=== PATIENT | male | born 2005 | race Caucasian/White ===

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

== ENCOUNTER 2025-06-07 16:52 | Emergency (ER) | payer OTHER, SELFPAY ==
--- NOTE | ~2025-06-07 | XR_ITS ---
EXAMINATION: XR KNEE, LEFT CLINICAL INFORMATION: twisted knee COMPARISON: None available. TECHNIQUE: Four views of the left knee. FINDINGS: Joint spaces are preserved. There are no osteophytes. There is no joint effusion. There is no abnormal soft tissue calcification. No fracture line is apparent. XR/XR knee LT 4V IMPRESSION: Unremarkable left knee x-ray Electronically signed by: Diego Brown MD 06/07/2025 05:20 PM [facility]
[2025-06-07 16:58] VITALS: BP 147/63; PULSE 94; RESP 18; TEMP 36.3; O2SAT 96; BMI 23.4
--- NOTE | 2025-06-07 17:03 | ED_ITS ---
HPI - General Adult General Chief complaint: Extremity Injury, Lower Stated complaint: Work related injury: Knee Time Seen by Provider: 06/07/25 17:39 Source: patient Mode of arrival: ambulatory Limitations: no limitations History of Present Illness ED Provider: Elsie Crowe PA-C HPI narrative: Patient is a 19 year old male with no reported medical history presenting to the emergency department today with left knee pain. 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 Patient states that as time has gone on the pain has gotten better but it continues to be painful. Patient denies any other complaints at this time. Related Data Allergies Allergy/AdvReac Type Severity Reaction Status Date / Time No Known Allergies Allergy Verified 06/07/25 16:59 Review of Systems Constitutional: Constitutional: Reports as per HPI Eyes: Eyes: Reports as per HPI ENT: Reports as per HPI Cardiovascular: Cardiovascular: Reports as per HPI Respiratory: Respiratory: Reports as per HPI Gastrointestinal: Gastrointestinal: Reports as per HPI Genitourinary: Genitourinary: Reports as per HPI Musculoskeletal: Musculoskeletal: Reports as per HPI Integumentary/Breasts: Skin/Breast: Reports as per HPI Neurologic: Reports as per HPI Psychiatric: Psychiatric: Reports as per HPI Endocrine: Endocrine: Reports as per HPI Hematologic/Lymphatic: Hematologic/Lymphatic: Reports as per HPI Allergic/Immunologic: Allergic/Immunologic: Reports as per HPI [facility] Past Medical History Attestation statement: The following information was validated with the patient. Source: old records reviewed and nursing notes reviewed Social History Social History Advance Directives: No Advance Directives Information Provided: Yes Physical Exam ED Vital Signs: Vital Signs - 24 hr 06/07/25 16:58 06/07/25 18:44 Temperature 97.3 F 97.3 F Pulse Rate 94 94 Respiratory Rate 18 18 Blood Pressure 147/63 H 147/63 H Pulse Oximetry 96 96 Oxygen Delivery Method Room Air Room Air BMI result Body Mass Index 23.4 Const General: cooperative, no acute distress, alert and awake Nutritional Appearance: well nourished Orientation/consciousness: patient oriented x3 HENMT Head: Yes normal to inspection and Yes atraumatic Ears: hearing grossly normal bilaterally and external ears normal General nose exam: Normal external nose present, no nasal discharge noted and no epistaxis Face and sinus: Yes normal facial exam, No abrasion and No laceration Mouth: Normal oral and palatal mucosa present, no drooling and no muffled voice Eyes General: appearance normal, both eyes and all related structures Periorbital: periorbital findings normal Eyelids: Yes eyelids normal Conjunctivae: conjunctivae normal Pupils: Equal, round and reactive pupils present EOM: EOMs intact bilaterally Neck Neck: Yes normal visual inspection and Yes full ROM Resp Effort & Inspection: normal respiratory effort and able to speak in complete sentences Neuro General: patient oriented x3, moves all extremities and CN's II-XI intact bilaterally Cranial nerves: Yes Equal, round and reactive pupils present Cognition (Neuro): normal cognition Extrem General: Yes normal to inspection, Yes full ROM and Yes capillary refill normal Psych Appearance: grossly normal Mental Status: mental status grossly normal Affect: normal affect Attitude: cooperative Thought process: Normal thought process present Thought content: Normal thought content present Insight: Good insight present (Psych) Course Course Course Narrative: Rapid medical examination performed in triage by Elsie Crowe PA-C: Patient is a 19 year old assigned male at presenting to the emergency department with left knee pain. 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 Patient states that as time has gone on today the pain has improved. Detailed physical exam and review of systems are deferred to the employment law specialist. Imaging ordered. Patient placed back in the waiting room pending room availability and results. Procedures Orthopedic Splinting/Casting L knee sprain: Side: left Lower Extremity Injury Location: knee Lower Extremity Immobilizer: knee immobilizer (hinge brace) Medical Decision Making Medical Decision Making MDM Narrative: Patient is a 19 year old male with no reported medical history presenting to the emergency department today with left knee pain. Patient's physical exam was as noted in the physical exam portion of this note. Patient was able to ambulate on his left lower extremity without incident Patient's left knee x-ray showed no acute process. Patient's clinical presentation is most consistent with a left knee sprain. I explained my physical exam findings as well as all test results to the patient. I answered all questions asked by the patient. Patient's left knee was placed in a knee hinge brace - without incident. Patient's PMS was intact prior to and after hinge brace placement. I stressed the importance of the patient taking his medication as directed (either prescribed or as the over the counter packaging recommends). I stressed the importance of the patient following up with his primary care provider, orthopedic team, and the work connection team. I stressed the importance of the patient returning to the emergency department immediately if his symptoms were to worsen or if he were to develop any dizziness, shortness of breath, difficulty breathing, chest pain, blurry vision, loss of vision, nausea, vomiting, abdominal pain, fever, chills, back pain, or any other complaints. Patient verbalized agreement and understanding with this treatment plan and discharge. Differential Diagnosis Differential Diagnoses: The differential diagnosis associated with the presentation includes Left knee sprain Left knee strain Admission/Observation Consideration of admission/observation: Escalation of care including admission/observation considered Patient would have been admitted to the hospital had his work up had any findings where hospital admission was appropriate and his clinical presentation warranted hospital admission. Independent Interpretation I performed an independent interpretation of an: Plain X-Ray Interpretation: My interpretation is in agreement with the radiologist's impression of this imaging study as written below. EXAMINATION: XR KNEE, LEFT CLINICAL INFORMATION: twisted knee COMPARISON: None available. TECHNIQUE: Four views of the left knee. FINDINGS: Joint spaces are preserved. There are no osteophytes. There is no joint effusion. There is no abnormal soft tissue calcification. No fracture line is apparent. XR/XR knee LT 4V IMPRESSION: Unremarkable left knee x-ray Electronically signed by: Diego Brown MD 06/07/2025 05:20 PM [facility] Dictated By: Diego Brown MD Signed By: Electronically signed by Diego Brown MD 06/07/25 2190 Radiology Impression Discussion of test interpretation with radiology: I have reviewed the radiologist's reading. Discharge Plan Discharge Clinical Impression: Knee sprain Qualifiers: Encounter type: initial encounter Involved ligament of knee: unspecified ligament Laterality: left Qualified Code(s): S83.92XA - Sprain of unspecified site of left knee, initial encounter Patient Disposition: Home, Self-Care Instructions: Knee Sprain (DC) Additional Instructions: Your x-ray was reassuring there is no iban abnormality. I believe you have sprained your knee. Please wear the knee immobilizer brace for 24 to 48 hours. Allow your knee to rest and after 48 hours you can work on gentle range of motion testing of the knee but stop when you have pain. Follow up with the orthopedic team. Given this was a work place injury - you should follow up with the work connection team. IF you are prescribed home medications and/or you are taking over the counter medications at home - it is very important you continue to do so as prescribed / directed unless told otherwise by a healthcare provider. Follow up with your primary care provider. Do your best to stay well hydrated and rest. Return to the emergency department immediately if your symptoms worsen or if you develop any numbness, tingling, dizziness, shortness of breath, difficulty breathing, chest pain, blurry vision, loss of vision, nausea, vomiting, abdominal pain, fever, chills, back pain, or any other complaints. If you do not have a primary care provider - call any of the below numbers to establish and follow up with a primary care provider. [facility] ([place]) [phone] [place] [address], [address] [facility] ([address]) [phone] [place] [address], [address] [facility], [address] [facility] ([address]) [phone] [place] [address], [address] [facility], [address] [facility] ([place]) [phone] [place] [address], [address] [facility], [address] [facility] Family Medicine [phone] [address] [facility], [address] Please see the information below about our Patient Portal. If you are not yet enrolled in the [facility] Patient Portal, you will receive an enrollment email invitation following your visit to any [facility] care setting. You may also self-enroll in the Patient Portal by visiting our website: [email or web address] The following information is required to access the Patient Portal: - Your [facility] Medical Record Number - Your personal home email address (must match what is in your electronic medical record, Registration staff can assist with this) - Name - Date of Capabilities of the Patient Portal: - Message some providers - View upcoming appointments - Access your health summary, medical history, and visit history - View current conditions and allergies - View procedure and lab results - View your medications, including guidelines, side effects, and precautions - Complete pre-appointment questionnaires requested by your provider - Ready summary reports of your office visits and procedures To access the Patient Portal Mobile Mark, follow these directions: - Search Notch in the Mark Store or Optify Store - Download the Mark - Search for [facility] - Enter your login/password Referrals: [facility] [Provider Group] Referral Note: Call to establish and follow up with the orthopedic team. Work Connection [Provider Group] Referral Note: Call to establish and follow up with work connection. Stand Alone Forms: Work/School Release Interventions: ED Discharge Assessment Last Done: 06/07/25 18:44 Discharge Date/Time: 06/07/25 18:45 Print Language: Maori
[2025-06-07 18:44] VITALS: BP 147/63; PULSE 94; RESP 18; TEMP 36.3; O2SAT 96
--- OUTSIDE RECORDS SUMMARY | 2025-06-07 20:46 | XMS_ITS ---
Author Name [facility] Organization Unknown Care Team Organization Name Specialty Phone Email Start Date End [facility] te [facility] 05/04/20222023
== END 2025-06-07 18:45 | disposition home or self-care (01) ==
PROVIDERS: Emergency Provider Emergency Medicine
DX: S83.92XA Sprain of unspecified site of left knee, initial encounter (principal); X50.1XXA Overexertion from prolonged static or awkward postures, initial encounter; M25.562 Pain in left knee; Y93.89 Activity, other specified; Y92.89 Other specified places as the place of occurrence of the external cause; Y99.0 Civilian activity done for income or pay
CPT/HCPCS: 73564; 99282; 99283

== ENCOUNTER → 2025-06-07 17:13 | Outpatient (BNV) | payer OTHER, SELFPAY | PROVIDERS: Emergency Provider Emergency Medicine; Visit Provider Radiology Diagnostic Radiology | DX: Z04.3 Encounter for examination and observation following other accident (principal) | CPT/HCPCS: 73564 ==